=== PATIENT | male | born 1955 | race Caucasian/White ===

== ENCOUNTER 2021-06-14 11:17 | Emergency (ER) | payer MEDICARE ==
[~2021-06-14] VITALS: Ht 177.8 cm; Wt 100.0 kg
[2021-06-14 11:40] VITALS: BP 113/63
--- NOTE | 2021-06-14 11:47 | ED.ADGEN ---
General Adult EDM: Chief Complaint: OTHER COMPLAINTS HPI: HPI: Patient is a 65 year old male coming in for shortness of breath and malaise. Patient tested positive for Covid 7 days ago but states he does feel better than he did 7 days ago. Patient has mostly here because his was brought in by EMS and he "wanted to be checked out" and have his "antibodies checked" patient denies any known pulmonary history but says he did smoke until 3 years ago. Review of Systems: Review of Systems: All other systems within normal limits except for as noted in the HPI Physical Exam: PE: Constitutional: Well developed, well nourished, no acute distress, non-toxic appearance. [] HENT: Normocephalic, atraumatic, bilateral external ears normal, nose normal. [] Eyes: PERRLA, conjunctiva normal, no discharge. [] Neck: No rigidity, supple, no stridor. [] Cardiovascular: Regular rate and rhythm, brisk cap refill [] Lungs & Thorax: Non labored symmetric respirations, no tachypnea or respiratory distress [] Abdomen: Soft, nondistended. Skin: Warm, dry, no erythema, no rash. [] Back: Unremarkable Extremities: No deformities, range of motion grossly intact, no lower extremity edema [] Neurologic: Alert and oriented X 3, no focal deficits noted. [] Psychologic: Affect normal, judgement normal, mood normal. [] Current Patient Data: Vital Signs: Vital Signs Date Time Temp Pulse Resp B/P (MAP) Pulse Ox O2 Delivery O2 Flow Rate FiO2 06/14/21 11:40 98.5 103 16 113/63 96 Room Air 98.5 EKG: EKG: [] Heart Score: C/O Chest Pain: No Risk Factors: Risk Factors: DM, Current or recent (<one month) smoker, HTN, HLP, family history of CAD, obesity. Risk Scores: Score 0 - 3: 2.5% MACE over next 6 weeks - Discharge Home Score 4 - 6: 20.3% MACE over next 6 weeks - Admit for Clinical Observation Score 7 - 10: 72.7% MACE over next 6 weeks - Early Invasive Strategies Radiology/Procedures: Radiology/Procedures: Chest x-ray EP interpretation: No focal consolidation Course & Med Decision Making: Course & Med Decision Making Patient was stable vital signs and good oxygen saturation on room air. Cristobal Disclaimer: Dragon Disclaimer: This electronic medical record was generated, in whole or in part, using a voice recognition dictation system. Departure Departure Impression: Primary Impression: COVID Disposition: HOME / SELF CARE / HOMELESS Condition: STABLE Patient Instructions: Shortness of Breath, [id number] Scripts Methylprednisolone (MEDROL) 4 Mg Tab.ds.pk 1 PKG PO UD, #1 PKG Prov: JOSE CHANDLER MD 06/14/21 Albuterol Sulfate (PROAIR HFA INHALER) 8.5 Gm Hfa.aer.ad 2 PUFF IH PRN Q4-6HRS PRN for wheezing for 21 Days, #1 INHALER 0 Refills Prov: JOSE CHANDLER MD 06/14/21 JOSE CHANDLER MD Jun 14, 2021 11:47
[2021-06-14] MEDS ORDERED: METH4TAB2 PO (13:05)
[2021-06-14] MEDS ORDERED: ALBU2.5V8 IH (13:05)
--- NOTE | 2021-06-14 14:10 | RAD ---
Exam Date: 06/14/2021 11:45 AM XR CHEST 1V Indication: Reason: covid / Spl. Instructions: / History: . FINDINGS/ IMPRESSION: The cardiac silhouette and pulmonary vasculature are within normal limits. There is no focal consolidation, pleural effusion or pneumothorax. The visualized osseous structures are intact. Electronically signed by: Stephon Ureña MD (06/14/2021 2:08 PM) [facility]
== END 2021-06-14 13:35 | disposition home or self-care (01) ==
LOC: ER 11:17
DX: U07.1 COVID-19 (principal)
CPT/HCPCS: 71045; 99283